=== PATIENT | female | born 1980 | race Hispanic/Latino ===

== ENCOUNTER 2023-05-11 18:22 | Emergency (ER) | payer OTHER ==
--- OUTSIDE RECORDS SUMMARY | 2023-05-11 18:26 | XMS REPORT | Continuity of Care Document ---
:[address] [facility] t Address [address] [facility] [address] [place] [address] Care Team Providers Name Role Phone Gómez Bailey Primary Care Physician [phone] Problems This patient has no known problems. Allergies, Adverse Reactions, Alerts This patient has no known allergies or adverse reactions. Medications Ordered Filled Start Stop Current Ordering Indication Dosage Frequency Signature Comments Components Source Medication Medication Date Date Medication? Clinician (SIG) Name Name &lt 2-0 No 150 7-18 00:00: 00 &lt 2022-0 No 100 7-18 00:00: 00 Dose 2022-0 No Unknown 4-05 00:00: 00 Dose 2022-0 No Unknown 4-05 00:00: 00 Dose 2022-0 No Unknown 4-05 00:00: 00 Dose 2022-0 No Unknown 4-05 00:00: 00 Dose 2022-0 No Unknown 4-05 00:00: 00 Dose 2022-0 No Unknown 4-05 00:00: 00 Dose 2022-0 No Unknown 4-05 00:00: 00 Dose 2022-0 No Unknown 4-05 00:00: 00 Dose 2022-0 No Unknown 4-05 00:00: 00 Dose 2022-0 No Unknown 4-05 00:00: 00 Dose 2022-0 No Unknown 4-05 00:00: 00 Dose 2022-0 No Unknown 4-05 00:00: 00 Dose 2022-0 No Unknown 4-05 00:00: 00 Dose 2022-0 No Unknown 4-05 00:00: 00 Dose 2022-0 No Unknown 4-05 00:00: 00 Dose 2022-0 No Unknown 4-05 00:00: 00 Dose 2022-0 No Unknown 4-05 00:00: 00 Dose 2022-0 No Unknown 4-05 00:00: 00 Dose 2022-0 No Unknown 4-05 00:00: 00 Dose 2022-0 No Unknown 4-05 00:00: 00 Dose 2022-0 No Unknown 4-05 00:00: 00 Dose 2022-0 No Unknown 4-05 00:00: 00 Dose 2022-0 No Unknown 4-05 00:00: 00 Dose 2022-0 No Unknown 4-05 00:00: 00 Dose 2022-0 No Unknown 4-05 00:00: 00 Dose 2022-0 No Unknown 4-05 00:00: 00 Dose 2022-0 No Unknown 4-05 00:00: 00 Dose 2022-0 No Unknown 4-05 00:00: 00 Dose 2022-0 No Unknown 4-05 00:00: 00 Dose 2022-0 No Unknown 4-05 00:00: 00 Dose 2022-0 No Unknown 3-16 00:00: 00 Dose 2022-0 No Unknown 3-16 00:00: 00 Dose 2-0 No Unknown 3-16 00:00: 00 metoprolol 1-1 No 1mg succinate 2-21 ER 100 mg 00:00: tablet,exte 00 nded release 24 hr losartan 1-1 No 1mg 100 mg 2-21 tablet 00:00: 00 losartan 1-1 No 1mg 100 mg 2-21 tablet 00:00: 00 metoprolol 1-1 No 1mg succinate 2-21 ER 100 mg 00:00: tablet,exte 00 nded release 24 hr isosorbide 1-1 No 1mg mononitrate 2-21 ER 30 mg 00:00: tablet,exte 00 nded release 24 hr losartan 1-0 No 1mg 100 mg 9-23 tablet 00:00: 00 metoprolol 1-0 No 1mg succinate 9-23 ER 100 mg 00:00: tablet,exte 00 nded release 24 hr fluconazole 1-0 No 1mg 150 mg 7-26 tablet 00:00: 00 levofloxaci 1-0 No 1mg n 250 mg 7-26 tablet 00:00: 00 fluconazole 1-0 No 1mg 150 mg 6-25 tablet 00:00: 00 metronidazo 1-0 No 1mg le 500 mg 6-25 tablet 00:00: 00 amoxicillin 2021-0 No 1mg 500 mg 6-25 capsule 00:00: 00 hydrocortis 1-0 No 1% one 1 % 6-22 topical 00:00: cream 00 Macrobid 2021-0 No 1mg 100 mg 6-22 capsule 00:00: 00 metoprolol 1-0 No 1mg succinate 6-09 ER 100 mg 00:00: tablet,exte 00 nded release 24 hr clonidine 1-0 No 1mg HCl 0.2 mg 6-09 tablet 00:00: 00 losartan 1-0 No 1mg 100 mg 6-09 tablet 00:00: 00 doxycycline 1-0 No 1mg monohydrate 3-19 100 mg 00:00: capsule 00 losartan 1-0 No 1mg 100 mg 3-16 tablet 00:00: 00 metoprolol 1-0 No 1mg succinate 3-16 ER 100 mg 00:00: tablet,exte 00 nded release 24 hr doxycycline 2019-1 No 1mg monohydrate 1-06 100 mg 00:00: capsule 00 losartan 2019-1 No 1mg 100 mg 1-04 tablet 00:00: 00 metoprolol 2020-1 No 1mg succinate 1-04 ER 100 mg 00:00: tablet,exte 00 nded release 24 hr losartan 2019-1 No 1mg 100 mg 0-07 tablet 00:00: 00 metoprolol 2020-1 No 1mg succinate 0-07 ER 100 mg 00:00: tablet,exte 00 nded release 24 hr losartan 2020-0 No 1mg 100 mg 3-24 tablet 00:00: 00 amoxicillin 2020-0 No 1mg 875 3-24 mg-potassiu 00:00: m 00 clavulanate 125 mg tablet Bromfed DM 2020-0 No 5mg/5 2 mg-30 3-24 mL mg-10 mg/5 00:00: mL oral 00 syrup losartan 2019-0 No 1mg 100 mg 4-23 tablet 00:00: 00 amlodipine 2018-0 No 1mg 5 mg tablet 1- 00:00: 00 amlodipine 2017-1 No 1mg 5 mg tablet 0-30 00:00: 00 amlodipine 2017-1 No 1mg 5 mg tablet 0- 00:00: 00 Vital Signs Vital Name Observation Time Observation Value Comments Source BP Systolic 2022-01-17 13:55:00 155 mm[Hg] BP Diastolic 2022-01-17 13:55:00 98 mm[Hg] Weight Measured 2022-01-17 13:55:00 177.20 pounds Height Measured 2022-01-17 13:55:00 63.00 inches Body Temperature 2022-01-17 13:55:00 97.40 degrees Heart Rate 2022-01-17 13:55:00 72.00 /min Respiratory Rate 2022-01-17 13:55:00 21.00 /min BP Systolic 2021-10-05 09:48:00 159 mm[Hg] BP Diastolic 2021-10-05 09:48:00 104 mm[Hg] Weight Measured 2021-10-05 09:48:00 179.20 pounds Height Measured 2021-10-05 09:48:00 63.00 inches Body Temperature 2021-10-05 09:48:00 98.10 degrees Heart Rate 2021-10-05 09:48:00 80.00 /min Respiratory Rate 2021-10-05 09:48:00 16.00 /min BP Systolic 2021-07-07 17:36:00 168 mm[Hg] BP Diastolic 2021-07-07 17:36:00 104 mm[Hg] Weight Measured 2021-07-07 17:36:00 175.80 pounds Height Measured 2021-07-07 17:36:00 63.00 inches Body Temperature 2021-07-07 17:36:00 98.30 degrees Heart Rate 2021-07-07 17:36:00 98.00 /min Respiratory Rate 2021-07-07 17:36:00 BP Systolic 2021-06-22 17:26:00 160 mm[Hg] BP Diastolic 2021-06-22 17:26:00 102 mm[Hg] Weight Measured 2021-06-22 17:26:00 175.40 pounds Height Measured 2021-06-22 17:26:00 63.00 inches Body Temperature 2021-06-22 17:26:00 98.30 degrees Heart Rate 2021-06-22 17:26:00 55.00 /min Respiratory Rate 2021-06-22 17:26:00 16.00 /min BP Systolic 2021-03-25 09:39:00 138 mm[Hg] BP Diastolic 2021-03-25 09:39:00 84 mm[Hg] Weight Measured 2021-03-25 09:39:00 171.60 pounds Height Measured 2021-03-25 09:39:00 63.00 inches Body Temperature 2021-03-25 09:39:00 97.50 degrees Heart Rate 2021-03-25 09:39:00 65.00 /min Respiratory Rate 2021-03-25 09:39:00 21.00 /min BP Systolic 2021-01-25 14:55:00 144 mm[Hg] BP Diastolic 2021-01-25 14:55:00 71 mm[Hg] Weight Measured 2021-01-25 14:55:00 174.00 pounds Height Measured 2021-01-25 14:55:00 63.00 inches Body Temperature 2021-01-25 14:55:00 98.20 degrees Heart Rate 2021-01-25 14:55:00 78.00 /min Respiratory Rate 2021-01-25 14:55:00 21.00 /min BP Systolic 2020-12-22 09:02:00 171 mm[Hg] BP Diastolic 2020-12-22 09:02:00 103 mm[Hg] Weight Measured 2020-12-22 09:02:00 172.20 pounds Height Measured 2020-12-22 09:02:00 63.00 inches Body Temperature 2020-12-22 09:02:00 98.00 degrees Heart Rate 2020-12-22 09:02:00 75.00 /min Respiratory Rate 2020-12-22 09:02:00 BP Systolic 2020-12-09 10:01:00 171 mm[Hg] BP Diastolic 2020-12-09 10:01:00 117 mm[Hg] Weight Measured 2020-12-09 10:01:00 172.60 pounds Height Measured 2020-12-09 10:01:00 63.00 inches Body Temperature 2020-12-09 10:01:00 99.00 degrees Heart Rate 2020-12-09 10:01:00 60.00 /min Respiratory Rate 2020-12-09 10:01:00 16.00 /min BP Systolic 2020-09-15 10:47:00 166 mm[Hg] BP Diastolic 2020-09-15 10:47:00 113 mm[Hg] Weight Measured 2020-09-15 10:47:00 175.20 pounds Height Measured 2020-09-15 10:47:00 63.00 inches Body Temperature 2020-09-15 10:47:00 98.20 degrees Heart Rate 2020-09-15 10:47:00 75.00 /min Respiratory Rate 2020-09-15 10:47:00 16.00 /min BP Systolic 2020-05-20 08:06:00 152 mm[Hg] BP Diastolic 2020-05-20 08:06:00 98 mm[Hg] Weight Measured 2020-05-20 08:06:00 182.20 pounds Height Measured 2020-05-20 08:06:00 63.00 inches Body Temperature 2020-05-20 08:06:00 96.70 degrees Heart Rate 2020-05-20 08:06:00 64.00 /min Respiratory Rate 2020-05-20 08:06:00 16.00 /min Procedures Procedure Date / Time Performed Performing Clinician Sourc e Ekg 2020-04-20 00:00:00 72311 Ecg Routine Ecg W/least 12 2017-03-20 00:00:00 Lds W/i r Plan of Care Planned Activity Planned Date Details Comments Source Goal Plan of Care Note [code = 09971-8] Goal Plan of Care Note [code = 82182-3] Goal Plan of Care Note [code = 23853-1] Goal Plan of Care Note [code = 82491-4] Goal Plan of Care Note [code = 21508-9] Goal Plan of Care Note [code = 73945-0] Goal Plan of Care Note [code = 29207-5] Goal Plan of Care Note [code = 40292-0] Goal Plan of Care Note [code = 43979-9] Goal Plan of Care Note [code = 83108-4] Goal Plan of Care Note [code = 35808-3] Goal Plan of Care Note [code = 48277-1] Goal Plan of Care Note [code = 10064-0] Goal Plan of Care Note [code = 04727-5] Goal Plan of Care Note [code = 95688-5] Goal Plan of Care Note [code = 77550-4] Goal Plan of Care Note [code = 59235-4] Encounters Start End Encounter Admission Attending Care Care Encounter Source Date/Time Date/Time Type Type Clinicians Facility Department ID 2023-03-28 2023-03-28 Outpatient [facility] [id number] [place] 08:39:05 08:39:05 0926 [facility] [place] 2023-03-27 2023-03-27 Outpatient [facility] [id number] [place] 17:01:49 17:01:49 0925 [facility] [place] 2022-08-19 2022-08-19 Outpatient [facility] [id number] [id number] [place] 08:21:03 08:21:03 0217 F [place] 2022-05-19 2022-05-19 Outpatient [facility] [id number] 022 [place] 08:48:04 08:48:04 1117 F [place] 2022-01-17 2022-01-17 Outpatient [id number] [id number] 00:00:00 00:00:00 Visit [id number] Results Test Description Test Time Test Comments Results Result Comments Source TSH, THIRD GENERATION 2023-03-29 06:20:04 Test Item Value Reference Range Interpretation Comme nts TSH, THIRD GENERATION (test 1.850 UIU/ML 0.400-4.100 UNLESS OTHERWISE INDICATED, code = 2821) ALL TESTING PER FORMED AT CLINICAL PATHOL [facility], [place] [id number] HEEL CEMENTER MACHINE: Ceci MONIQUE [id number] [facility] [place] [id number] HEMOGLOBIN [id number] 03:51:06 Test Item Value Reference Range Interpretation Comments HEMOGLOBIN A1c (test 5.8 % 4.2-5.6 H [employer] AN DIABETES code = 08151) ASSOCIATION IDELINES FOR HGB A1C: PREDIABETES/INC REASED RISK . . . . . . . 5.7 -6.4% DIAGNOSIS OF DI ABETES . . . . . . . . . >=6 .5% WITH CONFIRMATION OR APPROPRIATE SYMPTOMS NOTE: ASSAY MAY BE AFFECTED BY HEMOGLOBINOPATH IES (SICKLE CELL ANEMIA, S- C DISEASE, OTHERS) OR MINISTERIO FICIALLY LOWERED BY DECR EASED RED CELL SURVIVAL ( HEMOLYTIC ANEMIAS, BLOOD LOSS, ETC.). CONSIDER ALTERN ATE TESTING OR LABORATORY C ONSULTATION. LIPID [id number] 03:09:30 Test Item Value Reference Range Interpretation Comments CHOLESTEROL (test 163 MG/DL <200 code = 2210) TRIGLYCERIDES (test 126 MG/DL <150 code = 2232) HDL CHOLESTEROL (test 47 MG/DL >39 code = 2220) CALC LDL CHOL (test 93 MG/DL <100 NOTE: C ALCULATED LDL code = 2237) IS BASED ON TRACIE-KIMBROUGH METHOD WHICHINCLUDES ADJUSTABLE TRIGLYCERIDE:VL DL CHOLESTEROL RAT IO.THIS FACTOR VARIES B Y MEASURED TRIGLY CERIDE AND NON-HDLCHOL ESTEROL CONCENTRATIONS WITH INCREASED CALCU LATED LDL SEENIN HIGH ER TRIGLYCERIDE OR LOWER NON-HDL SPECIME NS. FOR MOREINFORMATION , SEE CLIENT ANNOUNCE MENT AT [email or web address] LDL/HDL 1.98 RATIO <3.22 (test code = 2238) COMPREHENSIVE METABOLIC [id number] 03:09:30 Test Item Value Reference Range Interpretation Comments GLUCOSE (test code = 2217) 108 MG/DL 70-99 H BUN (test code = 2208) 13 MG/DL 6-20 CREATININE (test code = 2214) 0.77 MG/DL 0.60-1.30 eGFR (2020 CKD-EPI) (test 100 ML/MIN/1.73 >60 code = 01132) CALC BUN/CREAT (test code = 17 RATIO 6-28 2234) SODIUM (test code = 2231) 141 MEQ/L 133-146 POTASSIUM (test code = 2228) 3.9 MEQ/L 3.5-5.4 CHLORIDE (test code = 2215) 104 MEQ/L 95-107 CARBON DIOXIDE (test code = 27 MEQ/L -31 2205) CALCIUM (test code = 2209) 9.7 MG/DL 8.5-10.5 PROTEIN, TOTAL (test code = 7.2 G/DL 6.1-8.3 2228) ALBUMIN (test code = 220) 4.4 G/DL 3.5-5.2 CALC GLOBULIN (test code = 2.8 G/DL 1.9-3.7 2239) CALC A/G RATIO (test code = 1.6 RATIO 1.0-2.6 2233) BILIRUBIN, TOTAL (test code = 0.3 MG/DL <=1.2 2206) ALKALINE PHOSPHATASE (test 55 U/L 40-112 code = 220) AST (test code = 2218) 21 U/L 9-40 ALT (test code = 2219) 31 U/L 5-40 COMPREHENSIVE METABOLIC [id number] 01:53:14 Test Item Value Reference Range Interpretation Comments GLUCOSE (test code = 99 MG/DL 70-99 2216) BUN (test code = 12 MG/DL 6-20 2207) CREATININE (test 0.79 MG/DL 0.60-1.30 code = 2213) eGFR (2020 CKD-EPI) 98 ML/MIN/1.73 >60 (test code = 35599) CALC BUN/CREAT (test 15 RATIO 6-28 code = 223) SODIUM (test code = 140 MEQ/L 707-732 5791) POTASSIUM (test code 4.0 MEQ/L 3.5-5.4 = 2227) CHLORIDE (test code 103 MEQ/L 95-107 = 2214) CARBON DIOXIDE (test 24 MEQ/L 19-31 code = 2205) CALCIUM (test code = 9.6 MG/DL 8.5-10.5 2208) PROTEIN, TOTAL (test 7.8 G/DL 6.1-8.3 code = 222) ALBUMIN (test code = 4.7 G/DL 3.5-5.2 2200) CALC GLOBULIN (test 3.1 G/DL 1.9-3.7 code = 224) CALC A/G RATIO (test 1.5 RATIO 1.0-2.6 code = 223) BILIRUBIN, TOTAL 0.6 MG/DL See_Comment [Automated message] (test code = 220) The syste m which generated this result transmit zach reference range : <=1.2. The refe rence range was not u sed to interpret th is result as normal/abnormal . ALKALINE PHOSPHATASE 58 U/L 40-112 (test code = 220) AST (test code = 23 U/L 9-40 2217) ALT (test code = 35 U/L 5-40 2219) LIPID [id number] 01:53:14 Test Item Value Reference Range Interpretation Comments CHOLESTEROL (test 158 MG/DL <200 code = 2210) TRIGLYCERIDES (test 111 MG/DL <150 code = 2232) HDL CHOLESTEROL (test 48 MG/DL >39 code = 2220) CALC LDL CHOL (test 89 MG/DL <100 NOTE: C ALCULATED LDL code = 2237) IS BASED ON TRACIE-KIMBROUGH METHOD WHICHINCLUDES ADJUSTABLE TRIGLYCERIDE:VL DL CHOLESTEROL RAT IO.THIS FACTOR VARIES B Y MEASURED TRIGLY CERIDE AND NON-HDLCHOL ESTEROL CONCENTRATIONS WITH INCREASED CALCU LATED LDL SEENIN HIGH ER TRIGLYCERIDE OR LOWER NON-HDL SPECIME NS. FOR MOREINFORMATION , SEE CLIENT ANNOUNCE MENT AT [email or web address] LDL/HDL 1.85 RATIO <3.22 (test code = 2238) CBC W/AUTO DIFF WITH [id number] 02:52:07 Test Item Value Reference Range Interpretation Comments WBC (test code = 6.8 K/UL 3.5-11.0 1001) RBC (test code = 4.23 M/UL 3.80-5.40 1002) HEMOGLOBIN (test code 12.8 G/DL 11.5-15.5 = 1003) HEMATOCRIT (test code 38.7 % 34.0-45.0 = 1004) MCV (test code = 91.5 fL 80.0-99.0 1005) MCH (test code = 30.3 PG 25.0-33.0 1006) MCHC (test code = 33.1 G/DL 31.0-36.0 1007) RDW (test code = 13.1 % 11.5-15.0 1038) NEUTROPHILS (test 56.7 % code = 1008) LYMPHOCYTES (test 33.8 % code = 1010) MONOCYTES (test code 7.6 % = 1011) EOSINOPHILS (test 1.2 % code = 1012) BASOPHILS (test code 0.4 % = 1013) IMMATURE GRANULOCYTES 0.3 % (test code = 1036) NUCLEATED RBCS (test 0.0 /100 WBC'S See_Comment [Aut omated code = 1065) message] The sy stem which generated this result transmitted reference range : 0.0. The refere nce range was not u sed to interpret th is result as normal/abnormal . PLATELET COUNT (test 278 K/UL 130-400 code = 1015) ABSOLUTE NEUTROPHILS 3.83 K/UL 1.50-7.50 (test code = 1066) ABSOLUTE LYMPHOCYTES 2.28 K/UL 1.00-4.00 (test code = 1067) ABSOLUTE MONOCYTES 0.51 K/UL 0.20-1.00 (test code = 1068) ABSOLUTE EOSINOPHILS 0.08 K/UL 0.00-0.50 (test code = 1040) ABSOLUTE BASOPHILS 0.03 K/UL 0.00-0.20 (test code = 1069) ABS IMMATURE 0.02 K/UL 0.00-0.10 GRANULOCYTES (test code = 1020) ABS NUCLEATED RBCS 0.00 K/UL 0.00-0.11 [facility] has (test code = 10897) dickan t pathology staff changes effective 08/31/2022. New pathology staff will provide uninterrupted, excellent patie nt care and clinic al consultation. S ee URL: [email or web address]. UN LESS OTHERWISE INDICATED, ALL TESTING PERFORM ED AT CL[facility], [facility] [address] [place] [address] CLIA : [id number], CAP : [id number] LIPID [id number] 05:31:44 Test Item Value Reference Range Interpretation Comments CHOLESTEROL (test 157 MG/DL <200 code = 2210) TRIGLYCERIDES (test 183 MG/DL <150 H code = 2232) HDL CHOLESTEROL (test 44 MG/DL >39 code = 2220) CALC LDL CHOL (test 85 MG/DL <100 NOTE: C ALCULATED LDL code = 2237) IS BASED ON TRACIE-KIMBROUGH METHOD WHICHINCLUDES ADJUSTABLE TRIGLYCERIDE:VL DL CHOLESTEROL RAT IO.THIS FACTOR VARIES B Y MEASURED TRIGLY CERIDE AND NON-HDLCHOL ESTEROL CONCENTRATIONS WITH INCREASED CALCU LATED LDL SEENIN HIGH ER TRIGLYCERIDE OR LOWER NON-HDL SPECIME NS. FOR MOREINFORMATION , SEE CLIENT ANNOUNCE MENT AT [email or web address] LDL/HDL 1.93 RATIO <3.22 (test code = 2238) COMPREHENSIVE METABOLIC [id number] 05:31:44 Test Item Value Reference Range Interpretation Comments GLUCOSE (test code = 74 MG/DL 70-99 2216) BUN (test code = 13 MG/DL 6-20 2207) CREATININE (test 0.66 MG/DL 0.60-1.30 code = 2213) eGFR (2020 CKD-EPI) 114 >60 (test code = 51537) ML/MIN/1.73 CALC BUN/CREAT (test 20 RATIO 6-28 code = 2235) SODIUM (test code = 142 MEQ/L 613-288 2445) POTASSIUM (test code 3.9 MEQ/L 3.5-5.4 = 2227) CHLORIDE (test code 106 MEQ/L 95-107 = 2214) CARBON DIOXIDE (test 25 MEQ/L 19-31 code = 2205) CALCIUM (test code = 9.0 MG/DL 8.5-10.5 2208) PROTEIN, TOTAL (test 7.3 G/DL 6.1-8.3 code = 2228) ALBUMIN (test code = 4.4 G/DL 3.5-5.2 2200) CALC GLOBULIN (test 2.9 G/DL 1.9-3.7 code = 2239) CALC A/G RATIO (test 1.5 RATIO 1.0-2.6 code = 2233) BILIRUBIN, TOTAL <0.2 MG/DL See_Comment [Automated message] (test code = 2206) The syste m which generated this result transmitted ref erence range: <=1.2. T he reference range was not used to int erpret this result as normal/abnormal . ALKALINE PHOSPHATASE 56 U/L 40-112 (test code = 2203) AST (test code = 16 U/L 9-40 2217) ALT (test code = 27 U/L 5-40 UNLESS OTH ERWISE 2218) INDICATED, ALL TESTING PERFORM ED AT[facility] PATH [facility], [place] [address] [facility] [place] [address] [facility] DIRECTOR: Ceci NICHOLEIA NUMBER [id number] CAP ACCREDITATION N O. [id number] CBC W/AUTO DIFF WITH [id number] 03:57:28 Test Item Value Reference Range Interpretation Comments WBC (test code = 5.8 K/UL 3.5-11.0 1001) RBC (test code = 3.95 M/UL 3.80-5.40 1002) HEMOGLOBIN (test code 11.9 G/DL 11.5-15.5 = 1003) HEMATOCRIT (test code 35.4 % 34.0-45.0 = 1004) MCV (test code = 89.6 fL 80.0-99.0 1005) MCH (test code = 30.1 PG 25.0-33.0 1006) MCHC (test code = 33.6 G/DL 31.0-36.0 1007) RDW (test code = 13.1 % 11.5-15.0 1038) NEUTROPHILS (test 59.1 % code = 1008) LYMPHOCYTES (test 31.8 % code = 1010) MONOCYTES (test code 6.8 % = 1011) EOSINOPHILS (test 1.7 % code = 1012) BASOPHILS (test code 0.3 % = 1013) IMMATURE GRANULOCYTES 0.3 % (test code = 1036) NUCLEATED RBCS (test 0.0 /100 WBC'S See_Comment [Aut omated code = 1065) message] The sy stem which generated this result transmitted reference range : 0.0. The refere nce range was not u sed to interpret th is result as normal/abnormal . PLATELET COUNT (test 298 K/UL 130-400 code = 1015) ABSOLUTE NEUTROPHILS 3.39 K/UL 1.50-7.50 (test code = 1066) ABSOLUTE LYMPHOCYTES 1.83 K/UL 1.00-4.00 (test code = 1067) ABSOLUTE MONOCYTES 0.39 K/UL 0.20-1.00 (test code = 1068) ABSOLUTE EOSINOPHILS 0.10 K/UL 0.00-0.50 (test code = 1040) ABSOLUTE BASOPHILS 0.02 K/UL 0.00-0.20 (test code = 1069) ABS IMMATURE 0.02 K/UL 0.00-0.10 GRANULOCYTES (test code = 1020) ABS NUCLEATED RBCS 0.00 K/UL 0.00-0.11 (test code = 32064) COMPREHENSIVE METABOLIC [id number] 00:00:00 Test Item Value Reference Range Interpretation Comments GLUCOSE (test code = 2217) 74 MG/DL BUN (test code = 2208) 13 MG/DL CREATININE (test code = 2214) 0.66 MG/DL eGFR (2020 CKD-EPI) (test 114 ML/MIN/1.73 code = 54528) CALC BUN/CREAT (test code = 20 RATIO 2234) SODIUM (test code = 2231) 142 MEQ/L POTASSIUM (test code = 2228) 3.9 MEQ/L CHLORIDE (test code = 2215) 106 MEQ/L CARBON DIOXIDE (test code = 25 MEQ/L 2205) CALCIUM (test code = 2209) 9.0 MG/DL PROTEIN, TOTAL (test code = 7.3 G/DL 2228) ALBUMIN (test code = 2201) 4.4 G/DL CALC GLOBULIN (test code = 2.9 G/DL 2239) CALC A/G RATIO (test code = 1.5 RATIO 2233) BILIRUBIN, TOTAL (test code = <0.2 MG/DL 2206) ALKALINE PHOSPHATASE (test 56 U/L code = 220) AST (test code = 2218) 16 U/L ALT (test code = 2219) 27 U/L CBC W/AUTO [id number] 00:00:00 Test Item Value Reference Range Interpretation Comments WBC (test code = 1001) 5.8 K/UL RBC (test code = 1002) 3.95 M/UL HEMOGLOBIN (test code = 1003) 11.9 G/DL HEMATOCRIT (test code = 1004) 35.4 % MCV (test code = 1005) 89.6 fL MCH (test code = 1006) 30.1 PG MCHC (test code = 1007) 33.6 G/DL RDW (test code = 1038) 13.1 % NEUTROPHILS (test code = 1008) 59.1 % LYMPHOCYTES (test code = 1010) 31.8 % MONOCYTES (test code = 1011) 6.8 % EOSINOPHILS (test code = 1012) 1.7 % BASOPHILS (test code = 1013) 0.3 % IMMATURE GRANULOCYTES (test 0.3 % code = 1036) NUCLEATED RBCS (test code = 0.0 /100WBC'S 1065) PLATELET COUNT (test code = 298 K/UL 1015) ABSOLUTE NEUTROPHILS (test code 3.39 K/UL = 1066) ABSOLUTE LYMPHOCYTES (test code 1.83 K/UL = 1067) ABSOLUTE MONOCYTES (test code = 0.39 K/UL 1068) ABSOLUTE EOSINOPHILS (test code 0.10 K/UL = 1040) ABSOLUTE BASOPHILS (test code = 0.02 K/UL 1069) ABS IMMATURE GRANULOCYTES (test 0.02 K/UL code = 1020) ABS NUCLEATED RBCS (test code = 0.00 K/UL 01424) CBC W/AUTO [id number] 00:00:00 Test Item Value Reference Range Interpretation Comments WBC (test code = 1001) 5.8 K/UL RBC (test code = 1002) 3.95 M/UL HEMOGLOBIN (test code = 1003) 11.9 G/DL HEMATOCRIT (test code = 1004) 35.4 % MCV (test code = 1005) 89.6 fL MCH (test code = 1006) 30.1 PG MCHC (test code = 1007) 33.6 G/DL RDW (test code = 1038) 13.1 % NEUTROPHILS (test code = 1008) 59.1 % LYMPHOCYTES (test code = 1010) 31.8 % MONOCYTES (test code = 1011) 6.8 % EOSINOPHILS (test code = 1012) 1.7 % BASOPHILS (test code = 1013) 0.3 % IMMATURE GRANULOCYTES (test 0.3 % code = 1036) NUCLEATED RBCS (test code = 0.0 /100WBC'S 1065) PLATELET COUNT (test code = 298 K/UL 1015) ABSOLUTE NEUTROPHILS (test code 3.39 K/UL = 1066) ABSOLUTE LYMPHOCYTES (test code 1.83 K/UL = 1067) ABSOLUTE MONOCYTES (test code = 0.39 K/UL 1068) ABSOLUTE EOSINOPHILS (test code 0.10 K/UL = 1040) ABSOLUTE BASOPHILS (test code = 0.02 K/UL 1069) ABS IMMATURE GRANULOCYTES (test 0.02 K/UL code = 1020) ABS NUCLEATED RBCS (test code = 0.00 K/UL 79796) LIPID [id number] 00:00:00 Test Item Value Reference Range Interpretation Comments CHOLESTEROL (test code = 2210) 157 MG/DL TRIGLYCERIDES (test code = 2232) 183 MG/DL HDL CHOLESTEROL (test code = 2220) 44 MG/DL CALC LDL CHOL (test code = 2237) 85 MG/DL RISK RATIO LDL/HDL (test code = 1.93 RATIO 2238) RPR [ADDED]2021-03-26 00:00:00 Test Item Value Reference Range Interpretation Comments RPR RESULT (test code = 3501) REACTIVE RPR TITER (test code = 3500) 1:2 TITER RPR [ADDED]2021-03-26 00:00:00 Test Item Value Reference Range Interpretation Comments RPR RESULT (test code = 3501) REACTIVE RPR TITER (test code = 3500) 1:2 TITER LIPID [id number] 00:00:00 Test Item Value Reference Range Interpretation Comments CHOLESTEROL (test code = 2210) 155 MG/DL TRIGLYCERIDES (test code = 2232) 107 MG/DL HDL CHOLESTEROL (test code = 2220) 48 MG/DL CALC LDL CHOL (test code = 2237) 87 MG/DL RISK RATIO LDL/HDL (test code = 1.81 RATIO 2238) COMPREHENSIVE METABOLIC [id number] 00:00:00 Test Item Value Reference Range Interpretation Comments GLUCOSE (test code = 2217) 90 MG/DL BUN (test code = 2208) 13 MG/DL CREATININE (test code = 2214) 0.75 MG/DL eGFR AMER. (test code 117 ML/MIN/1.73 = 24183) eGFR NON- AMER. (test 101 ML/MIN/1.73 code = 51367) CALC BUN/CREAT (test code = 17 RATIO 2235) SODIUM (test code = 2231) 140 MEQ/L POTASSIUM (test code = 2228) 4.4 MEQ/L CHLORIDE (test code = 2215) 104 MEQ/L CARBON DIOXIDE (test code = 25 MEQ/L 2206) CALCIUM (test code = 2209) 9.3 MG/DL PROTEIN, TOTAL (test code = 7.2 G/DL 2228) ALBUMIN (test code = 2201) 4.4 G/DL CALC GLOBULIN (test code = 2.8 G/DL 2240) CALC A/G RATIO (test code = 1.6 RATIO 2234) BILIRUBIN, TOTAL (test code = 0.4 MG/DL 2206) ALKALINE PHOSPHATASE (test 55 U/L code = 2204) AST (test code = 2218) 20 U/L ALT (test code = 2219) 28 U/L CULTURE, [id number] 00:00:00 Test Item Value Reference Range Interpretation Comments CULTURE, URINE (test SPECIMEN NUMBER: code = 11382 [id number] CULTURE, [id number] 00:00:00 Test Item Value Reference Range Interpretation Comments CULTURE, URINE (test SPECIMEN NUMBER: code = 52119) [id number] VAGINAL PATHOGENS DNA [id number] 00:00:00 Test Item Value Reference Range Interpretation Comments FRIDA SPECIES (test code = 88682) POSITIVE G. VAGINALIS (test code = ) POSITIVE T. VAGINALIS (test code = 57486) NEGATIVE [id number] 00:00:00 Test Item Value Reference Range Interpretation Comments RPR RESULT (test code = 3501) REACTIVE RPR TITER (test code = 3500) 1:2 TITER [id number] 00:00:00 Test Item Value Reference Range Interpretation Comments RPR RESULT (test code = 3501) REACTIVE RPR TITER (test code = 3500) 1:2 TITER LIPID [id number] 00:00:00 Test Item Value Reference Range Interpretation Comments CHOLESTEROL (test code = 2210) 152 MG/DL TRIGLYCERIDES (test code = 2232) 103 MG/DL HDL CHOLESTEROL (test code = 2220) 52 MG/DL CALC LDL CHOL (test code = 2237) 80 MG/DL RISK RATIO LDL/HDL (test code = 1.54 RATIO 2238) CBC W/AUTO [id number] 00:00:00 Test Item Value Reference Range Interpretation Comments WBC (test code = 1001) 5.1 K/UL RBC (test code = 1002) 3.97 M/UL HEMOGLOBIN (test code = 1003) 11.8 G/DL HEMATOCRIT (test code = 1004) 35.0 % MCV (test code = 1005) 88.2 fL MCH (test code = 1006) 29.7 PG MCHC (test code = 1007) 33.7 G/DL RDW (test code = 1038) 13.0 % NEUTROPHILS (test code = 1008) 54.5 % LYMPHOCYTES (test code = 1010) 36.6 % MONOCYTES (test code = 1011) 7.1 % EOSINOPHILS (test code = 1012) 1.2 % BASOPHILS (test code = 1013) 0.6 % PLATELET COUNT (test code = 1015) 289 K/UL CBC W/AUTO [id number] 00:00:00 Test Item Value Reference Range Interpretation Comments WBC (test code = 1001) 5.1 K/UL RBC (test code = 1002) 3.97 M/UL HEMOGLOBIN (test code = 1003) 11.8 G/DL HEMATOCRIT (test code = 1004) 35.0 % MCV (test code = 1005) 88.2 fL MCH (test code = 1006) 29.7 PG MCHC (test code = 1007) 33.7 G/DL RDW (test code = 1038) 13.0 % NEUTROPHILS (test code = 1008) 54.5 % LYMPHOCYTES (test code = 1010) 36.6 % MONOCYTES (test code = 1011) 7.1 % EOSINOPHILS (test code = 1012) 1.2 % BASOPHILS (test code = 1013) 0.6 % PLATELET COUNT (test code = 1015) 289 K/UL COMPREHENSIVE METABOLIC [id number] 00:00:00 Test Item Value Reference Range Interpretation Comments GLUCOSE (test code = 2217) 104 MG/DL BUN (test code = 2208) 10 MG/DL CREATININE (test code = 2214) 0.73 MG/DL eGFR AMER. (test code 121 ML/MIN/1.73 = 27133) eGFR NON- AMER. (test 104 ML/MIN/1.73 code = 18266) CALC BUN/CREAT (test code = 14 RATIO 2235) SODIUM (test code = 2231) 142 MEQ/L POTASSIUM (test code = 2228) 3.6 MEQ/L CHLORIDE (test code = 2215) 103 MEQ/L CARBON DIOXIDE (test code = 26 MEQ/L 2206) CALCIUM (test code = 2209) 9.3 MG/DL PROTEIN, TOTAL (test code = 7.5 G/DL 2228) ALBUMIN (test code = 2201) 4.5 G/DL CALC GLOBULIN (test code = 3.0 G/DL 2240) CALC A/G RATIO (test code = 1.5 RATIO 2234) BILIRUBIN, TOTAL (test code = 0.2 MG/DL 2207) ALKALINE PHOSPHATASE (test 53 U/L code = 2204) AST (test code = 2218) 20 U/L ALT (test code = 2219) 26 U/L T. PALLIDUM TOTAL AB RFLX [id number] 00:00:00 Test Item Value Reference Range Interpretation Comments T. PALLIDUM TOTAL AB (test code = 38.7 INDEX 76448) RPR [REFLEX]2020-05-08 00:00:00 Test Item Value Reference Range Interpretation Comments RPR RESULT (test code = 3501) REACTIVE RPR TITER (test code = 3500) 1:2 TITER RPR [REFLEX]2020-05-08 00:00:00 Test Item Value Reference Range Interpretation Comments RPR RESULT (test code = 3501) REACTIVE RPR TITER (test code = 3500) 1:2 TITER T. PALLIDUM TOTAL AB RFLX [id number] 00:00:00 Test Item Value Reference Range Interpretation Comments T. PALLIDUM TOTAL AB (test code = 54.2 INDEX 74748) GC AND CHLAMYDIA, AMPLIFIED, [id number] 00:00:00 Test Item Value Reference Range Interpretation Comments GONORRHEA, NAAT (test code = 66035) NEGATIVE CHLAMYDIA, NAAT (test code = 52093) NEGATIVE [id number] 00:00:00 Test Item Value Reference Range Interpretation Comments RPR RESULT (test code = 3501) REACTIVE RPR TITER (test code = 3500) 1:1 TITER [id number] 00:00:00 Test Item Value Reference Range Interpretation Comments RPR RESULT (test code = 3501) REACTIVE RPR TITER (test code = 3500) 1:1 TITER CBC W/AUTO [id number] 00:00:00 Test Item Value Reference Range Interpretation Comments WBC (test code = 1001) 5.9 K/UL RBC (test code = 1002) 4.19 M/UL HEMOGLOBIN (test code = 1003) 12.3 G/DL HEMATOCRIT (test code = 1004) 36.6 % MCV (test code = 1005) 87.4 fL MCH (test code = 1006) 29.4 PG MCHC (test code = 1007) 33.6 G/DL RDW (test code = 1038) 13.4 % NEUTROPHILS (test code = 1008) 59.3 % LYMPHOCYTES (test code = 1010) 32.9 % MONOCYTES (test code = 1011) 7.0 % EOSINOPHILS (test code = 1012) 0.5 % BASOPHILS (test code = 1013) 0.3 % PLATELET COUNT (test code = 1015) 282 K/UL CBC W/AUTO [id number] 00:00:00 Test Item Value Reference Range Interpretation Comments WBC (test code = 1001) 5.9 K/UL RBC (test code = 1002) 4.19 M/UL HEMOGLOBIN (test code = 1003) 12.3 G/DL HEMATOCRIT (test code = 1004) 36.6 % MCV (test code = 1005) 87.4 fL MCH (test code = 1006) 29.4 PG MCHC (test code = 1007) 33.6 G/DL RDW (test code = 1038) 13.4 % NEUTROPHILS (test code = 1008) 59.3 % LYMPHOCYTES (test code = 1010) 32.9 % MONOCYTES (test code = 1011) 7.0 % EOSINOPHILS (test code = 1012) 0.5 % BASOPHILS (test code = 1013) 0.3 % PLATELET COUNT (test code = 1015) 282 K/UL COMPREHENSIVE METABOLIC [id number] 00:00:00 Test Item Value Reference Range Interpretation Comments GLUCOSE (test code = 2217) 96 MG/DL BUN (test code = 2208) 12 MG/DL CREATININE (test code = 2214) 0.61 MG/DL eGFR AMER. (test code 134 ML/MIN/1.73 = 11692) eGFR NON- AMER. (test 116 ML/MIN/1.73 code = 80056) CALC BUN/CREAT (test code = 20 RATIO 2235) SODIUM (test code = 2231) 139 MEQ/L POTASSIUM (test code = 2228) 4.4 MEQ/L CHLORIDE (test code = 2215) 104 MEQ/L CARBON DIOXIDE (test code = 27 MEQ/L 2206) CALCIUM (test code = 2209) 9.3 MG/DL PROTEIN, TOTAL (test code = 7.4 G/DL 2228) ALBUMIN (test code = 2201) 4.5 G/DL CALC GLOBULIN (test code = 2.9 G/DL 2240) CALC A/G RATIO (test code = 1.6 RATIO 2234) BILIRUBIN, TOTAL (test code = <0.2 MG/DL 2206) ALKALINE PHOSPHATASE (test 59 U/L code = 2204) AST (test code = 2218) 13 U/L ALT (test code = 2219) 26 U/L VAGINAL PATHOGENS DNA [id number] 00:00:00 Test Item Value Reference Range Interpretation Comments FRIDA SPECIES (test code = ) NEGATIVE G. VAGINALIS (test code = ) NEGATIVE T. VAGINALIS (test code = ) NEGATIVE LIPID [id number] 00:00:00 Test Item Value Reference Range Interpretation Comments CHOLESTEROL (test code = 2210) 119 MG/DL TRIGLYCERIDES (test code = 2232) 167 MG/DL HDL CHOLESTEROL (test code = 2220) 47 MG/DL CALC LDL CHOL (test code = 2237) 47 MG/DL RISK RATIO LDL/HDL (test code = 1.00 RATIO 2238) CBC W/AUTO [id number] 00:00:00 Test Item Value Reference Range Interpretation Comments WBC (test code = 1001) 2.7 K/UL RBC (test code = 1002) 4.10 M/UL HEMOGLOBIN (test code = 1003) 11.9 G/DL HEMATOCRIT (test code = 1004) 34.7 % MCV (test code = 1005) 84.6 fL MCH (test code = 1006) 29.0 PG MCHC (test code = 1007) 34.3 G/DL RDW (test code = 1038) 12.9 % NEUTROPHILS (test code = 1008) 21.9 % LYMPHOCYTES (test code = 1010) 64.2 % MONOCYTES (test code = 1011) 11.6 % EOSINOPHILS (test code = 1012) 1.9 % BASOPHILS (test code = 1013) 0.4 % PLATELET COUNT (test code = 1015) 252 K/UL COMMENTS (test code = 1016) (NOTE) CBC W/AUTO [id number] 00:00:00 Test Item Value Reference Range Interpretation Comments WBC (test code = 1001) 2.7 K/UL RBC (test code = 1002) 4.10 M/UL HEMOGLOBIN (test code = 1003) 11.9 G/DL HEMATOCRIT (test code = 1004) 34.7 % MCV (test code = 1005) 84.6 fL MCH (test code = 1006) 29.0 PG MCHC (test code = 1007) 34.3 G/DL RDW (test code = 1038) 12.9 % NEUTROPHILS (test code = 1008) 21.9 % LYMPHOCYTES (test code = 1010) 64.2 % MONOCYTES (test code = 1011) 11.6 % EOSINOPHILS (test code = 1012) 1.9 % BASOPHILS (test code = 1013) 0.4 % PLATELET COUNT (test code = 1015) 252 K/UL COMMENTS (test code = 1016) (NOTE) COMPREHENSIVE METABOLIC [id number] 00:00:00 Test Item Value Reference Range Interpretation Comments GLUCOSE (test code = 2217) 98 MG/DL BUN (test code = 2208) 14 MG/DL CREATININE (test code = 2214) 0.66 MG/DL eGFR AMER. (test code 131 ML/MIN/1.73 = 22510) eGFR NON- AMER. (test 113 ML/MIN/1.73 code = 14479) CALC BUN/CREAT (test code = 21 RATIO 2235) SODIUM (test code = 2231) 144 MEQ/L POTASSIUM (test code = 2228) 4.1 MEQ/L CHLORIDE (test code = 2215) 104 MEQ/L CARBON DIOXIDE (test code = 28 MEQ/L 220) CALCIUM (test code = 2209) 9.3 MG/DL PROTEIN, TOTAL (test code = 7.2 G/DL 2228) ALBUMIN (test code = 2201) 4.4 G/DL CALC GLOBULIN (test code = 2.8 G/DL 2240) CALC A/G RATIO (test code = 1.6 RATIO 2234) BILIRUBIN, TOTAL (test code = <0.2 MG/DL 2206) ALKALINE PHOSPHATASE (test 55 U/L code = 2204) AST (test code = 2218) 37 U/L ALT (test code = 2219) 47 U/L COMPREHENSIVE METABOLIC [id number] 00:00:00 Test Item Value Reference Range Interpretation Comments GLUCOSE (test code = 2217) 80 MG/DL BUN (test code = 2208) 11 MG/DL CREATININE (test code = 2214) 0.61 MG/DL eGFR AMER. (test code 135 ML/MIN/1.73 = 84575) eGFR NON- AMER. (test 117 ML/MIN/1.73 code = 52714) CALC BUN/CREAT (test code = 18 RATIO 2235) SODIUM (test code = 2231) 143 MEQ/L POTASSIUM (test code = 2228) 4.0 MEQ/L CHLORIDE (test code = 2215) 103 MEQ/L CARBON DIOXIDE (test code = 29 MEQ/L 2206) CALCIUM (test code = 2209) 9.3 MG/DL PROTEIN, TOTAL (test code = 7.5 G/DL 2229) ALBUMIN (test code = 2201) 4.5 G/DL CALC GLOBULIN (test code = 3.0 G/DL 2240) CALC A/G RATIO (test code = 1.5 RATIO 2234) BILIRUBIN, TOTAL (test code = 0.3 MG/DL 2207) ALKALINE PHOSPHATASE (test 61 U/L code = 2204) AST (test code = 2218) 16 U/L ALT (test code = 2219) 21 U/L VITAMIN [id number] 00:00:00 Test Item Value Reference Range Interpretation Comments VITAMIN B-12 (test code = 2840) 295 PG/ML VITAMIN [id number] 00:00:00 Test Item Value Reference Range Interpretation Comments VITAMIN B-12 (test code = 2840) 295 PG/ML CBC W/AUTO [id number] 00:00:00 Test Item Value Reference Range Interpretation Comments WBC (test code = 1001) 6.1 K/UL RBC (test code = 1002) 4.29 M/UL HEMOGLOBIN (test code = 1003) 12.7 G/DL HEMATOCRIT (test code = 1004) 37.9 % MCV (test code = 1005) 88.3 fL MCH (test code = 1006) 29.6 PG MCHC (test code = 1007) 33.5 G/DL RDW (test code = 1038) 12.7 % NEUTROPHILS (test code = 1008) 60.8 % LYMPHOCYTES (test code = 1010) 31.3 % MONOCYTES (test code = 1011) 7.1 % EOSINOPHILS (test code = 1012) 0.5 % BASOPHILS (test code = 1013) 0.3 % PLATELET COUNT (test code = 1015) 311 K/UL CBC W/AUTO [id number] 00:00:00 Test Item Value Reference Range Interpretation Comments WBC (test code = 1001) 6.1 K/UL RBC (test code = 1002) 4.29 M/UL HEMOGLOBIN (test code = 1003) 12.7 G/DL HEMATOCRIT (test code = 1004) 37.9 % MCV (test code = 1005) 88.3 fL MCH (test code = 1006) 29.6 PG MCHC (test code = 1007) 33.5 G/DL RDW (test code = 1038) 12.7 % NEUTROPHILS (test code = 1008) 60.8 % LYMPHOCYTES (test code = 1010) 31.3 % MONOCYTES (test code = 1011) 7.1 % EOSINOPHILS (test code = 1012) 0.5 % BASOPHILS (test code = 1013) 0.3 % PLATELET COUNT (test code = 1015) 311 K/UL LIPID [id number] 00:00:00 Test Item Value Reference Range Interpretation Comments CHOLESTEROL (test code = 2210) 150 MG/DL TRIGLYCERIDES (test code = 2232) 98 MG/DL HDL CHOLESTEROL (test code = 2220) 54 MG/DL CALC LDL CHOL (test code = 2237) 76 MG/DL RISK RATIO LDL/HDL (test code = 1.41 RATIO 2238) LIPID [id number] 00:00:00 Test Item Value Reference Range Interpretation Comments CHOLESTEROL (test code = 2210) 142 MG/DL TRIGLYCERIDES (test code = 2232) 91 MG/DL HDL CHOLESTEROL (test code = 2220) 50 MG/DL CALC LDL CHOL (test code = 2237) 74 MG/DL RISK RATIO LDL/HDL (test code = 1.48 RATIO 2238) CBC W/AUTO [id number] 00:00:00 Test Item Value Reference Range Interpretation Comments WBC (test code = 1001) 6.8 K/UL RBC (test code = 1002) 4.06 M/UL HEMOGLOBIN (test code = 1003) 11.8 G/DL HEMATOCRIT (test code = 1004) 35.4 % MCV (test code = 1005) 87.2 fL MCH (test code = 1006) 29.1 PG MCHC (test code = 1007) 33.3 G/DL RDW (test code = 1038) 13.4 % NEUTROPHILS (test code = 1008) 60.7 % LYMPHOCYTES (test code = 1010) 30.1 % MONOCYTES (test code = 1011) 8.2 % EOSINOPHILS (test code = 1012) 0.6 % BASOPHILS (test code = 1013) 0.4 % PLATELET COUNT (test code = 1015) 273 K/UL CBC W/AUTO [id number] 00:00:00 Test Item Value Reference Range Interpretation Comments WBC (test code = 1001) 6.8 K/UL RBC (test code = 1002) 4.06 M/UL HEMOGLOBIN (test code = 1003) 11.8 G/DL HEMATOCRIT (test code = 1004) 35.4 % MCV (test code = 1005) 87.2 fL MCH (test code = 1006) 29.1 PG MCHC (test code = 1007) 33.3 G/DL RDW (test code = 1038) 13.4 % NEUTROPHILS (test code = 1008) 60.7 % LYMPHOCYTES (test code = 1010) 30.1 % MONOCYTES (test code = 1011) 8.2 % EOSINOPHILS (test code = 1012) 0.6 % BASOPHILS (test code = 1013) 0.4 % PLATELET COUNT (test code = 1015) 273 K/UL HEMOGLOBIN [id number] 00:00:00 Test Item Value Reference Range Interpretation Comments HEMOGLOBIN A1c (test code = 07006) 5.6 % HEMOGLOBIN [id number] 00:00:00 Test Item Value Reference Range Interpretation Comments HEMOGLOBIN A1c (test code = 91615) 5.6 % [id number] 00:00:00 Test Item Value Reference Range Interpretation Comments TSH (test code = 2821) 2.400 UIU/ML [id number] 00:00:00 Test Item Value Reference Range Interpretation Comments TSH (test code = 2821) 2.400 UIU/ML COMPREHENSIVE METABOLIC [id number] 00:00:00 Test Item Value Reference Range Interpretation Comments GLUCOSE (test code = 2217) 98 MG/DL BUN (test code = 2208) 11 MG/DL CREATININE (test code = 2214) 0.66 MG/DL eGFR AMER. (test code 134 ML/MIN/1.73 = 88225) eGFR NON- AMER. (test 115 ML/MIN/1.73 code = 60188) CALC BUN/CREAT (test code = 17 RATIO 2235) SODIUM (test code = 2231) 142 MEQ/L POTASSIUM (test code = 2228) 4.0 MEQ/L CHLORIDE (test code = 2215) 102 MEQ/L CARBON DIOXIDE (test code = 24 MEQ/L 2205) CALCIUM (test code = 2209) 9.1 MG/DL PROTEIN, TOTAL (test code = 7.6 G/DL 2229) ALBUMIN (test code = 2201) 4.4 G/DL CALC GLOBULIN (test code = 3.2 G/DL 2240) CALC A/G RATIO (test code = 1.4 RATIO 4) BILIRUBIN, TOTAL (test code = 0.1 MG/DL 2206) ALKALINE PHOSPHATASE (test 53 U/L code = 2204) AST (test code = 2218) 19 U/L ALT (test code = 2219) 22 U/L PAP TEST, THINPREP, [id number] 00:00:00 Test Item Value Reference Range Interpretation Comments SOURCE: (test code = Cervical/Endocervical 8001) SLIDES: (test code = 1 8011) LMP: (test code = 12/2016 8021) SPECIMEN ADEQUACY: (NOTE) (test code = 91745) INTERPRETATION: (test NO EPITHELIAL code = 58630) ABNORMALITY SEE BELOW RUSH SEATER: KAYE (test code = 8101) DARELL RODRIGUEZ(ASCP)IAC QC TECHNOLOGIST: Mayi Strange (test code = 8111) DARELL Alicea(ASCP)IAC LOCATION: (test code (NOTE) = 69709) CPT: (test code = (NOTE) 8140) GC AND CHLAMYDIA AMPLIFIED, [id number] 00:00:00 Test Item Value Reference Range Interpretation Comments GONORRHEA, TMA (test code = 29389) NEGATIVE CHLAMYDIA, TMA (test code = 78740) NEGATIVE [id number] 00:00:00 Test Item Value Reference Range Interpretation Comments RPR RESULT (test code = 3501) REACTIVE RPR TITER (test code = 3500) 1:1 TITER [id number] 00:00:00 Test Item Value Reference Range Interpretation Comments RPR RESULT (test code = 3501) REACTIVE RPR TITER (test code = 3500) 1:1 TITER ACUTE HEPATITIS [id number] 00:00:00 Test Item Value Reference Range Interpretation Comments HEPATITIS A IgM (test code = NON-REACTIVE 12576) HEPATITIS B CORE IgM (test code NON-REACTIVE = 3244) HEPATITIS B SURF AG (test code = NON-REACTIVE 0321) HEPATITIS C ANTIBODY (test code NON-REACTIVE = 4914) INTERPRETATION HEPATITIS A: (NOTE) (test code = 2552) INTERPRETATION HEPATITIS B: (NOTE) (test code = 82329) INTERPRETATION HEPATITIS C: (NOTE) (test code = 61737) HIV AB/AG COMBO RFLX [id number] 00:00:00 Test Item Value Reference Range Interpretation Comments HIV 1/2 4TH GEN, RFLX CONF (test NON-REACTIVE code = 3514) HPV HIGH RISK WITH GENOTYPE, [id number] 00:00:00 Test Item Value Reference Range Interpretation Comments HPV HIGH RISK INTERP (test code = NEGATIVE 73695) HPV 16 (test code = 23658) NEGATIVE HPV 18 (test code = 17203) NEGATIVE HPV, HR, OTHER GENOTYPES (test code NEGATIVE = 82748)
--- NOTE | 2023-05-11 18:53 | EDPHYS ---
Physician Documentation [facility] Name: Julia Wills Age: 42 yrs Sex: Female : 1980 Arrival Date: 05/11/2023 Time: 18:22 Bed IW8 Private MD: ED Physician Tom Blas Historical: - Allergies: 05/11 18:45 No Known Allergies; kd3 - Immunization history:: Adult Immunizations up to date. - Social history:: Smoking status: Patient denies any tobacco usage or history of. Vital Signs: 18:40 Pulse 57; Resp 16; Temp 98.1(TE); Pulse Ox 100% ; Weight 84.82 kg; Height 5 ft. 2 in. ; kd3 18:45 BP 127 / 87; kd3 18:40 Body Mass Index 34.20 (84.82 kg, 157.48 cm) kd3 MDM: 18:52 Patient medically screened. ms3 Administered Medications: No medications were administered Disposition Summary: 05/11/23 18:53 Discharge Ordered Notes: Location: Home ms3 Condition: Stable ms3 Diagnosis - Influenza ms3 - Anosmia ms3 - Nasal congestion ms3 Followup: ms3 - With: Ochoa Lara DO - When: 2 - 3 days - Reason: Recheck today's complaints Discharge Instructions: - Discharge Summary Sheet ms3 - Influenza, Adult ms3 Forms: - Medication Reconciliation Form ms3 - Thank You Letter ms3 - Antibiotic Education ms3 - Prescription Opioid Use ms3 - Patient Portal Instructions ms3 - Leadership Thank You Letter ms3 Signatures: Tom Blas DO DO ms3 Danii Mccord, RN RN kd3
--- NOTE | 2023-05-11 18:53 | ER ---
Nurse's Notes [facility] Name: Julia Wills Age: 42 yrs Sex: Female : 1980 Arrival Date: 05/11/2023 Time: 18:22 Bed IW8 Private MD: Diagnosis: Influenza;Anosmia;Nasal congestion Presentation: 05/11 18:42 Coronavirus screen: Vaccine status: Patient reports receiving the 2nd dose of the covid kd3 vaccine. Ebola Screen: No symptoms or risks identified at this time. Initial Sepsis Screen: Does the patient meet any 2 criteria? No. Patient's initial sepsis screen is negative. Does the patient have a suspected source of infection? No. Patient's initial sepsis screen is negative. Risk Assessment: Do you want to hurt yourself or someone else? Patient reports no desire to harm self or others. 18:42 Method Of Arrival: Ambulatory kd3 18:42 Chief complaint: Patient states: I went to a clinic on Monday and they gave me a kd3 medication for flu, dexamethasone, benzonatate, and Tamiflu, but for 2 days, i am not feeling well. I think i am having a reaction to the medications because my face is swollen and my tongue is numb. Onset: The symptoms/episode began/occurred gradually. Anaphylaxis evaluation, no signs or symptoms of anaphylaxis were noted. Onset of symptoms was May 11, 2023. 18:42 Acuity: LISA 4 kd3 Triage Assessment: 18:45 General: Appears in no apparent distress. Behavior is calm, cooperative. Pain: Denies kd3 pain. Historical: - Allergies: 18:45 No Known Allergies; kd3 - Immunization history:: Adult Immunizations up to date. - Social history:: Smoking status: Patient denies any tobacco usage or history of. Screenin:51 [facility] ED Fall Risk Assessment (Adult) History of falling in the last 3 months, kd3 including since admission. [facility] ED Fall Risk Assessment (Adult) History of falling in the last 3 months, including since admission No falls in past 3 months (0 pts) Confusion or Disorientation No (0 pts) Intoxicated or Sedated No (0 pts) Impaired Gait No (0 pts) Mobility Assist Device Used No (0 pt) Altered Elimination No (0 pt) Score/Fall Risk Level 0 - 2 = Low Risk Maintained a safe environment. Abuse screen:. Abuse screen: Denies threats or abuse. Denies injuries from another. Nutritional screening: No deficits noted. Tuberculosis screening: No symptoms or risk factors identified. Assessment: 18:51 General: Appears in no apparent distress. Behavior is calm, cooperative. Respiratory: kd3 Airway is patent Trachea midline Respiratory effort is even, unlabored, Breath sounds are clear bilaterally. Vital Signs: 18:40 Pulse 57; Resp 16; Temp 98.1(TE); Pulse Ox 100% ; Weight 84.82 kg; Height 5 ft. 2 in. ; kd3 18:45 BP 127 / 87; kd3 18:40 Body Mass Index 34.20 (84.82 kg, 157.48 cm) kd3 ED Course: 18:24 Patient arrived in ED. rg4 18:28 Tom Blas DO is Attending Physician. ms3 18:45 Triage completed. kd3 18:45 Arm band placed on right wrist. kd3 18:51 Patient has correct armband on for positive identification. Provided Education on: kd3 medication side effects . 18:51 No provider procedures requiring assistance completed. Patient did not have IV access kd3 during this emergency room visit. 18:52 Ochoa Lara DO is Referral Physician. ms3 Administered Medications: No medications were administered Medication: 18:51 VIS not applicable for this client. kd3 Outcome: 18:51 Discharged to home ambulatory, kd3 18:51 Condition: stable 18:51 Discharge instructions given to patient, family, Instructed on discharge instructions, follow up and referral plans. Demonstrated understanding of instructions, follow-up care, 18:53 Discharge ordered by MD. ms3 19:00 Patient left the ED. kd3 Signatures: Steffany Tenorio rg4 Tom Blas DO DO ms3 Danii Mccord RN RN kd3 Corrections: (The following items were deleted from the chart) 18:45 18:42 Coronavirus screen: Vaccine status: Patient reports being unvaccinated. kd3 kd3 18:47 18:42 Chief complaint: Patient states: I went to a clinic on Monday and they gave me kd3 a medication for flu, dexamethasone, benzonatate, and one other medication, but for 2 days, i am not feeling well. I think i am having a reaction to the medications because my face is swollen and my tongue is numb. kd3 18:48 18:42 Acuity: LISA 3 kd3 kd3
[2023-05-11 19:35] VITALS: TEMP 98.1; O2SAT 100
[2023-05-11 19:36] VITALS: BP 127/87
== END 2023-05-11 19:00 | disposition home or self-care (01) ==
LOC: ER 18:22
DX: J11.1 Influenza due to unidentified influenza virus with other respiratory manifestations (principal); R09.81 Nasal congestion
CPT/HCPCS: 99282